=== PATIENT | male | born 1960 | race Caucasian/White ===

== ENCOUNTER 2022-10-23 06:26 | Outpatient (CLI) | payer OTHER | END 2022-10-23 06:27 | disposition critical access hospital (66) | LOC: EMS 06:26 | DX: K62.5 Hemorrhage of anus and rectum (principal); K62.89 Other specified diseases of anus and rectum | CPT/HCPCS: A0425; A0429 ==

== ENCOUNTER 2022-10-23 06:51 | Emergency (ER) | payer OTHER ==
[2022-10-23] MEDS ORDERED: MORPHINE 2 MG/ML CARPUJECT IVP STA ×2 (07:26→09:19)
[2022-10-23] MEDS ORDERED: KETOROLAC 15 MG/ML VIAL IVP STA (07:26)
--- NOTE | 2022-10-23 07:26 | ED Physician Documentation ---
History of Present Illness - Stated complaint Stated Complaint: RECTAL BLEED - Chief complaint Chief Complaint: General - History obtained from History obtained from: Patient - History of Present Illness Timing: Prior to arrival - Additonal information Additional information: 62-year-old male presents by EMS from home for rectal bleeding. Patient states that 10 days ago he noticed pain in what he believed to be his prostate area. Also reports rectal pain with defecation as well as changes in his bowel movements. Pain gradually worsened, and he states that he woke up this morning with his bed sheets covered in what looked like blood and feces, so he called 911. This has never happened before. Patient states that since waking up the pressure sensation has decreased significantly, but he does have a washcloth in between his buttocks to keep drainage from leaking. Review of Systems Constitutional: denies: Fever, Chills GI: denies: Abdominal Pain, Nausea, Vomiting, Constipation, Diarrhea : reports: Other (RECTAL PAIN/DISCHARGE). denies: Dysuria, Frequency, Hesitancy Skin: denies: Rash, Lesions, Abrasion (s) PD PAST MEDICAL HISTORY - Past Medical History Past Medical History: No - Past Surgical History Ortho: Rotator cuff repair - Present Medications Home Medications: Ambulatory Orders Medication Instructions Recorded Confirmed Amox/Clav 875/125 [Augmentin] 1 each PO Q12H #20 tablet 10/23/22 Aspirin [Aspirin EC] 81 mg PO DAILY 10/23/22 10/23/22 Oxycodone HCl/Acetaminophen 1 - 2 each PO Q6H PRN #14 tablet 10/23/22 [Percocet 5-325 mg Tablet] - Allergies Allergies/Adverse Reactions: Allergies Allergy/AdvReac Type Severity Reaction Status Date / Time No Known Drug Allergies Allergy Verified 10/23/22 07:02 - Social History Does the pt smoke?: Yes Smoking Status: Current every day smoker PD ED PE NORMAL - Vitals Vital signs reviewed: Yes - General General: Alert and oriented X 3, No acute distress, Well developed/nourished - HEENT HEENT: Atraumatic - Neck Neck: Supple, no meningeal sign - Cardiac Cardiac: RRR, No murmur, Strong equal pulses - Abdomen Abdomen: Soft, Non tender, Non distended - Male Male : Deferred - Rectal Rectal: Other (Rectal tone intact. 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, No motor deficit, Normal speech Results - Vitals Vitals: Vital Signs - 24 hr 10/23/22 10/23/22 10/23/22 06:56 07:10 09:01 Temperature 36.5 C Heart Rate 86 90 Respiratory 16 16 Rate Blood Pressure 159/96 H 140/83 H 151/93 H O2 Saturation 95 100 10/23/22 09:31 Temperature Heart Rate 88 Respiratory 16 Rate Blood Pressure 143/91 H O2 Saturation 98 Oxygen O2 Source Room air - Labs Labs: Laboratory Tests 10/23/22 10/23/22 07:39 07:39 WBC 22.3 H RBC 4.28 L Hgb 13.0 L Hct 39.2 L MCV 91.6 MCH 30.4 MCHC 33.2 RDW 12.1 Plt Count 384 MPV 7.8 Neut # (Auto) Not Reportable Lymph # (Auto) Not Reportable [place] # (Auto) Not Reportable Eos # (Auto) Not Reportable Baso # (Auto) Not Reportable Absolute Nucleated RBC Not Reportable Total Counted 100 Band Neuts % (Manual) 0 Abnorm Lymph % (Manual) 0 Nucleated RBC % Not Reportable Neutrophils # (Manual) 18.7 H Lymphocytes # (Manual) 2.5 Monocytes # (Manual) 1.1 H Eosinophils # (Manual) 0.0 Basophils # (Manual) 0.0 Differential Comment MANUAL DIFFERENTIAL Manual Slide Review Indicated WBC Morphology NORMAL APPEARANCE Platelet Estimate NORMAL (130-450,000) Platelet Morphology NORMAL APPEARANCE RBC Morph Micro Appear NORMAL APPEARANCE Sodium 134 L Potassium 3.9 Chloride 100 L Carbon Dioxide 24 Anion Gap 10.0 BUN 15 Creatinine 1.1 Estimated GFR (MDRD) 68 L Glucose 114 H Calcium 9.8 Total Bilirubin 0.4 AST 18 ALT 15 Alkaline Phosphatase 57 Total Protein 7.7 Albumin 3.8 Globulin 3.9 Albumin/Globulin Ratio 1.0 Procedures - Abscess I&D (location) Buttocks right Preparation: Lidocaine 1%, With epi, Other (confirmed with CT) Incision: Incised with scalpel, Purulent drainage, Loculations broken, Irrigated, Packed, Other (Large amounts of bloody/purulent material drained) Other: Pt tolerated well, Dressing applied, Antibiotic prescribed PD Medical Decision Making - ED course Complexity details: reviewed results, re-evaluated patient, considered differential, d/w patient, d/w family, d/w group segment consultant ED course: Nontoxic-appearing patient with perirectal pain as well as rectal pressure. Patient states that he was bleeding profusely from his rectum with feces, however it appears that there is copious drainage from a perirectal abscess. There does not appear to be any gross bleeding or fecal incontinence at this time. It is concerning however that the patient's pain started in in the region of his prostate. Will obtain labs and CT imaging to assess depth of abscess as well as location. Laboratory work significant for leukocytosis of 22. Other laboratory work is unremarkable. Pending CT imaging. Patient otherwise appears remarkably well and nontoxic in appearance. CT imaging reviewed. Discussed the CT report and leukocytosis with general surgery. General surgery stated that since the abscess is already draining superficially it can be incised and drained in the emergency department. Recommended cruciate incision with copious irrigation with saline flushes. Recommended placement of packing. Packing can be removed at patient's first shower and does not need to be replaced. Recommended Augmentin on discharge for antibiotic coverage. All of this was discussed with patient, who agreed to incision and drainage. This was performed per procedure note. Patient tolerated procedure well without complication. Patient to be discharged with Augmentin and pain medication. He was given strict ED return precautions as well as general surgery follow-up referral. - Consults Consults: Consulted (name) (Dr. Alexandra Welsh), Discussed case with, Other (Reviewed CT report with specialist. Since abscess is already draining at skin level a larger, cruciate incision can be made. Abscess can be drained and irrigated in ED with packing. Patient can remove packing at first shower and no need to replace packing. Recommended DC with augmentin.) Departure - Departure Disposition: 01 Home, Self Care Clinical Impression: Perirectal abscess Condition: Stable Instructions: Sitz Bath, ED Abscess IandD Follow-Up: Alma Welsh MD [Provider Admit Priv/Credential] - Prescriptions: Amox/Clav 875/125 [Augmentin] 1 each PO Q12H #20 tablet Oxycodone HCl/Acetaminophen [Percocet 5-325 mg Tablet] 1 - 2 each PO Q6H PRN #14 tablet PRN Reason: pain Comments: Leave the packing in until your next shower, you may then remove the packing and no additional packing needs to be placed. Take all of your antibiotics as prescribed. If you have a bowel movement make sure to clean the area as well as possible. You may also use sitz bath's to keep the area cleansed. Pain medication has been sent to your pharmacy, however be aware that it can cause constipation and drowsiness. You should take a stool softener when taking these pain medications. If you continue to have pain in this area and you are not improving with antibiotics and sitz bath's, a referral to general surgery has been provided. Please return to the emergency department if you have fevers, worsening drainage, or any other concerning symptoms. Forms: PCP List
[2022-10-23 07:46] LABS: BASOPHILS % (AUTO) 0.3 %; EOSINOPHILS % (AUTO) 0.5 %; HCT - HEMATOCRIT 39.2 % (42.0-52.0); LYMPHOCYTES % (AUTO) 6.1 %; MEAN CORPUSCULAR HEMOGLOBIN 30.4 pg (27.0-31.0); MEAN CORPUSCULAR HGB CONC 33.2 g/dL (32.0-36.0); MEAN CORPUSCULAR VOLUME 91.6 fL (80.0-94.0); MEAN PLATELET VOLUME 7.8 fL (7.4-11.4); MONOCYTES % (AUTO) 11.4 %; NEUTROPHILS % (AUTO) 81.1 %; PLT - PLATELET COUNT 384 10^3/uL (130-450); RED BLOOD COUNT 4.28 10^6/uL (4.70-6.10); RED CELL DISTRIBUTION WIDTH 12.1 % (12.0-15.0); WHITE BLOOD COUNT 22.3 x10^3/uL (4.8-10.8)
[2022-10-23 07:50] LABS: ABNORMAL LYMPHS % (MANUAL) 0 %; BAND NEUTROPHILS % (MANUAL) 0 %; SLIDE REVIEW? Indicated
[2022-10-23 08:01] LABS: ALBUMIN 3.8 g/dL (3.2-5.5); BILIRUBIN,TOTAL 0.4 mg/dL (0.2-1.0); CALCIUM 9.8 mg/dL (8.5-10.3); CREATININE 1.1 mg/dL (0.6-1.3); POTASSIUM 3.9 mmol/L (3.5-4.5); TOTAL PROTEIN 7.7 g/dL (6.4-8.9)
[2022-10-23 08:16] LABS: LYMPHOCYTES # (MANUAL) 2.5 10^3/uL (1.5-3.5); LYMPHOCYTES % (MANUAL) 11 %; MONOCYTES # (MANUAL) 1.1 10^3/uL (0.0-1.0); NEUTROPHILS # (MANUAL) 18.7 10^3/uL (1.5-6.6); RBC MORPHOLOGY (MULTIPLE) NORMAL APPEARANCE (NORMAL)
[2022-10-23 08:17] LABS: DIFFERENTIAL COMMENT MANUAL DIFFERENTIAL; PLATELET ESTIMATE, MANUAL NORMAL (130-450,000) (NORMAL); PLATELET MORPHOLOGY NORMAL APPEARANCE (NORMAL); WBC MORPHOLOGY (MULTIPLE) NORMAL APPEARANCE (NORMAL)
--- NOTE | 2022-10-23 09:05 | CT Report ---
PROCEDURE: PELVIS W INDICATIONS: RECTAL/PERIRECTAL ABSCESS CONTRAST: 100ml Omni 300 TECHNIQUE: After the administration of intravenous contrast, a CT scan of the pelvis was performed. Images were recorded and evaluated at appropriate window settings. Reformats: axial MIP of the chest, coronal an d sagittal. For radiation dose reduction, the following was used: automated exposure control, adjustm ent of mA and/or kV according to patient size. COMPARISON: None FINDINGS: Image quality: Excellent. Bowel and peritoneum: No bowel distension. No pathologic free fluid. Mild sigmoid diverticulosis is s een without sigmoid colon wall thickening or mesenteric fat stranding. No abscess collection. No brenden toneal free air. Vessels: No infrarenal aortic aneurysm. Atherosclerotic calcifications are seen in distal abdominal a tarun and bilateral iliac arteries. Reproductive organs: Unremarkable. Bladder: No abnormal wall thickening, accounting for underdistention. Pelvic lymph nodes: No pelvic adenopathy by size criteria. Bones: No aggressive osseous abnormality. Other: There is significant right perirectal fat stranding and edema with ill-defined hypodense colle ction along right perirectal space measures up to 5.9 x 2.5 x 4.8 cm in size suggestive of early absc ess collection. Small bilateral inguinal hernia is seen containing fat only. Likely injection granulo ma in right lateral gluteal region with lobulated calcification. IMPRESSION: 1. Extensive right perirectal inflammatory changes with early abscess development in right perirectal space measures up to 5.9 x 2.5 x 4.8 cm in size. 2. No peritoneal abscess collection. No free fluid of free air. Mild sigmoid diverticulosis without C T evidence of acute diverticulitis. 3. Small bilateral inguinal hernia containing fat only. No gross inguinal lymphadenopathy by size cri teria. Reviewed by: Brandon Baldwin MD on 10/23/2022 9:03 AM PDT Approved by: Brandon Baldwin MD on 10/23/2022 9:03 AM PDT Station ID: [id number]
[2022-10-23] MEDS ORDERED: LORazepam 2 MG/ML VIAL IVP STA (09:07)
[2022-10-23] MEDS ORDERED: LIDOCAINE 1%-EPI 1:100000 20 ML MDV SUBQ STA (09:07)
[2022-10-23] MEDS ORDERED: LIDOCAINE 1%-EPI 1:100000 10 ML MDV SUBQ STA (09:24)
[2022-10-23 09:37] VITALS: BP 143/91; O2SAT 98
[2022-10-23] MEDS ORDERED: iohexoL-300 100 ML VIAL IVP ONE (10:46)
== END 2022-10-23 10:13 | disposition home or self-care (01) ==
LOC: ED 06:51
DX: K61.1 Rectal abscess (principal); F17.200 Nicotine dependence, unspecified, uncomplicated
CPT/HCPCS: 36415; 46040; 72193; 80053; 85025; 96374; 96375; 96376; 99284; J2060; Q9967